=== PATIENT | male | born 1995 | race Caucasian/White ===

== ENCOUNTER → 2016-07-31 | Outpatient (CLI) | payer OTHER ==
--- NOTE | 2016-07-31 16:44 | REP ---
Clinical: Pain with recent trauma. Technique: AP and lateral views of the left forearm. Findings: No acute fracture dislocation. Skeletal structures, joint spaces, and surrounding soft tissues are normal. Impression: No acute fracture or dislocation. Signed by Pawan Potter MD 07/31/2016 04:36 P
--- NOTE | 2016-07-31 16:45 | REP ---
Clinical: Pain with recent Trauma. Technique: AP, lateral, bilateral oblique views left wrist . Findings: The carpal bones, surrounding osseous structures, soft tissues, and joint spaces are normal. There is no evidence for acute fracture or dislocation. No subcutaneous emphysema or radiodense foreign body. Impression: Normal wrist series. No acute fracture or dislocation Signed by Pawan Potter MD 07/31/2016 04:37 P
== END ==
LOC: M WUC 15:58
PROVIDERS: ATTEND Physician Assistant
DX: M79.602 Pain in left arm (principal); M25.532 Pain in left wrist

== ENCOUNTER → 2016-09-13 | Outpatient (REF) | payer OTHER ==
[2016-09-13 19:42] LABS: LUTEINIZING HORMONE 3.3 mIU/mL (1.5-9.3); PROLACTIN 7.2 NG/ML (2.1-17.7)
[2016-09-13 19:43] LABS: ESTRADIOL 27.6 PG/ML (<39.8); FOLLICLE STIMULATING HORMONE 4.4 mIU/mL (1.4-18.1)
[2016-09-15 08:07] LABS: HCG SERUM TUMOR MARKER QUANT < 1 mIU/mL (0-3)
== END ==
LOC: M SFHCPLAZ 15:28
PROVIDERS: ATTEND Family Medicine
DX: N62 Hypertrophy of breast (principal); R63.5 Abnormal weight gain

== ENCOUNTER 2017-05-11 10:10 | Emergency (ER) | payer OTHER, SELFPAY, MEDICAID | END 2017-05-11 10:29 | disposition home or self-care (01) | LOC: M ED 10:10 | DX: N48.33 Priapism, drug-induced (principal); T43.205A Adverse effect of unspecified antidepressants, initial encounter; F90.9 Attention-deficit hyperactivity disorder, unspecified type; F41.9 Anxiety disorder, unspecified; F84.0 Autistic disorder; Z91.030 Bee allergy status; Z87.891 Personal history of nicotine dependence | CPT/HCPCS: 99283 ==

== ENCOUNTER → 2017-07-26 | Outpatient (REF) | payer OTHER ==
[2017-07-26 12:08] LABS: TESTOSTERONE 411 NG/DL (241-827)
== END ==
LOC: M SFHCPLAZ 08:45
DX: N62 Hypertrophy of breast (principal)